=== PATIENT | male | born 1940 | race Caucasian/White ===

== ENCOUNTER 2025-04-02 12:35 | Outpatient (CLI) | payer MEDICARE, BC ==
[2025-04-02 13:12] LABS: Estimated GFR - POC 45.0
== END 2025-04-02 12:36 | disposition home or self-care (01) ==
LOC: CSHMRI 12:35
PROVIDERS: ATTEND Urology
DX: N28.89 Other specified disorders of kidney and ureter (principal)
CPT/HCPCS: 36415; 74183; 82565